=== PATIENT | male | born 1995 | race Caucasian/White ===

== ENCOUNTER 2018-05-19 14:07 | Emergency (ER) | payer OTHER ==
[~2018-05-19] VITALS: Ht 175.3 cm; Wt 76.7 kg
--- NOTE | 2018-05-19 14:17 | NUR ---
Pt to bed 1 via w/c
--- NOTE | 2018-05-19 14:19 | NUR ---
Patient to ER bed 01 to gown for evaluation. Side rails up.
--- NOTE | 2018-05-19 14:20 | NUR ---
Pt arrived to ED with complaints of bilateral eye swelling. Pt stated that he had hip sx the prior day. Pt took Rx medication as perscribed. Pt took a nap this morning and woke up with swelling to the left eye. The facial swelling progressed to the right eye. Bilateral eyes upper and lower lids have edema. Pt denies any visual impairment. Lung sounds clear with no signs of SOB or chest tightness.
[2018-05-19 14:21] VITALS: BP_SYST 159
--- NOTE | 2018-05-19 14:25 | NUR ---
ER Dr. Blunt at bedside examining patient.
[2018-05-19] MEDS ORDERED: PREDNISONE 20 MG TABLET PO ONE (14:30)
[2018-05-19] MEDS ORDERED: EPINEPHrine 1 MG/ML AMP SUBCUT ONE (14:30)
--- NOTE | 2018-05-19 14:47 | NUR ---
Pt moved to [place] [id number]
[2018-05-19 14:59] LABS: BASOPHILS # (AUTO) 0.1 K/uL (0.0-0.2); BASOPHILS % (AUTO) 0.8 % (0.0-2.0); EOSINOPHILS # (AUTO) 0.2 K/uL (0.0-0.4); EOSINOPHILS % (AUTO) 1.9 % (0.0-4.0); HEMATOCRIT 41.2 % (36-54); HEMOGLOBIN 13.7 g/dL (14.0-18.0); LYMPHOCYTES # (AUTO) 2.4 K/uL (1.0-5.5); LYMPHOCYTES % (AUTO) 25.3 % (20.5-51.5); MEAN CORPUSCULAR HEMOGLOBIN 32 pg (27-31); MEAN CORPUSCULAR HGB CONC 33 % (32-36); MEAN CORPUSCULAR VOLUME 95 fL (79.0-98.0); MONOCYTES % (AUTO) 10.1 % (1.7-9.3); NEUTROPHILS # (AUTO) 5.8 K/uL (1.8-7.7); NEUTROPHILS % (AUTO) 61.9 % (40.0-70.0); PLATELET COUNT (AUTO) 242 K/uL (130-430); RED BLOOD CELL COUNT(AUTO) 4.32 MIL/uL (4.2-6.2); RED CELL DISTRIBUTION WIDTH 12.4 % (9.0-15.0); WHITE BLOOD COUNT (AUTO) 9.5 K/uL (4.8-10.8)
--- NOTE | 2018-05-19 15:10 | NUR ---
Pt resting in bed comfortably with mom at bedside. No signs of acute distress
[2018-05-19 15:21] LABS: CALCIUM 8.7 mg/dL (8.4-11.0); CREATININE 0.99 mg/dL (0.55-1.30); POTASSIUM 3.6 mmol/L (3.5-5.1); PROTHROMBIN TIME 10.1 SECS (9.5-12.5)
[2018-05-19 15:26] LABS: ALBUMIN 4.2 g/dL (3.4-4.8); C-REACTIVE PROTEIN QUANT 1.1 mg/dL (0-0.5); TOTAL BILIRUBIN 0.7 mg/dL (0.0-1.0)
[2018-05-19 16:42] VITALS: BP_SYST 113
--- NOTE | 2018-05-19 16:42 | NUR ---
Patient given written and verbal discharge instructions and verbalizes understanding. ER MD discussed with patient the results and treatment provided. Patient in stable condition. ID arm band removed. Patient educated on pain management and to follow up with PMD. Pain Scale 0-10. Opportunity for questions provided and answered. Medication side effect fact sheet provided.
== END 2018-05-19 16:42 | disposition home or self-care (01) ==
LOC: SED 14:07
DX: H02.89 Other specified disorders of eyelid (principal); T50.995A Adverse effect of other drugs, medicaments and biological substances, initial encounter; Y92.89 Other specified places as the place of occurrence of the external cause
CPT/HCPCS: 36415; 80053; 85025; 85610; 85730; 86140; 96372; 99284; J0171; J7512